=== PATIENT | male | born 1960 | race Hispanic/Latino ===

== ENCOUNTER 2025-02-15 07:24 | Observation (INO) | payer BC ==
[2025-02-11 13:43] LABS: BASOPHILS # (AUTO) 0.04 K/uL (0.00-0.20); BASOPHILS % (AUTO) 0.5 % (0.0-5.0); EOSINOPHILS # (AUTO) 0.12 K/uL (0.00-0.70); EOSINOPHILS % (AUTO) 1.4 % (0.0-8.0); HEMATOCRIT 38.9 % (42-54); IMMATURE GRANULOCYTE ABSOLUTE 0.04 K/uL (0-1); LYMPHOCYTES # (AUTO) 3.9 K/uL (1.0-4.8); LYMPHOCYTES % (AUTO) 44.8 % (21.0-51.0); MEAN CORPUSCULAR HEMOGLOBIN 30.7 pg (27.0-33.0); MEAN CORPUSCULAR HGB CONC 33.4 g/dL (32.0-36.0); MEAN CORPUSCULAR VOLUME 91.7 fL (79-99); MONOCYTES # (AUTO) 0.5 K/uL (0.1-1.0); MONOCYTES % (AUTO) 6.2 % (3.0-13.0); NEUTROPHILS # (AUTO) 4.1 K/uL (1.8-7.7); NEUTROPHILS % (AUTO) 46.6 % (40.0-77.0); PLATELET COUNT (AUTO) 252 K/uL (130-400); RED BLOOD CELL COUNT(AUTO) 4.24 MIL/uL (4.50-6.20); RED CELL DISTRIBUTION WIDTH 13.6 % (11.0-15.5); WHITE BLOOD COUNT (AUTO) 8.7 K/uL (4.8-10.8)
[2025-02-11 13:48] VITALS: BP 153/77; PULSE 69; RESP 18; TEMP 99.5
[2025-02-11 13:54] LABS: INR 1.02 (0.85-1.15); PROTHROMBIN TIME 10.8 SEC (9.6-11.6)
[2025-02-11 13:55] LABS: ALBUMIN 3.9 g/dL (3.5-5.0); CREATININE 0.8 mg/dL (0.5-1.3); PARTIAL THROMBOPLASTIN TIME 29.3 SEC (26.3-35.5); POTASSIUM 4.2 mmol/L (3.5-5.1)
--- NOTE | 2025-02-11 14:00 | NUR ---
RE: IS INITIAL IS INITIAL TEACHING DONE BY RT JERI DURING PREOP
[~2025-02-15] VITALS: Ht 185.4 cm; Wt 109.8 kg
[2025-02-15] VITALS (26 sets, daily range): BP systolic 125–168; BP diastolic 68–85; PULSE 63–98; RESP 14–20; TEMP 96.1–98.9; O2SAT 98
[~2025-02-15 07:24] MED LIST: AMLO-257 PO; ASPI-1443 PO; ATOR40TA69 PO; LOSA50TA64 PO
[2025-02-15] MEDS: VANCOMYCIN IV ONE (08:22)
[2025-02-15] MEDS ORDERED: ROPivacaine 0.5% 5MG/ML 30ML ONE (09:05)
[2025-02-15] MEDS ORDERED: ketaMINE 50MG/ML SYRINGE 50 MG/ML DISP.SYRIN ONE (09:06)
[2025-02-15] MEDS ORDERED: proPOFol 10 MG/ML 20ML VIAL IV ONE (09:08)
[2025-02-15] MEDS ORDERED: LIDOCAINE PF 100MG/5ML (2%) SYRINGE 5ML ONE (09:08)
[2025-02-15] MEDS ORDERED: FENTanyl CITRate PF 50 MCG/1 ML 2ML VIAL ONE (09:09)
[2025-02-15] MEDS ORDERED: rocuRONium bROMide 10MG/1ML 5ML VL ONE (09:09)
--- NOTE | 2025-02-15 09:23 | EKG ---
[facility] Test Date: 2025-02-15 Test Time: 08:17:51 Pat Name: JUNIOR PITTMAN Department: [facility] Room: 418 Gender: M Mainspring Winder: [id number] : 1960 Requested By: KOLBY ALLEN Order Number: [id number] Reading MD: Phu Cedeno Measurements Intervals [place] Rate: 76 P: 28 OK: 171 QRS: 11 QRSD: 91 T: 20 QT: 398 QTc: 449 Interpretive Statements Sinus rhythm Inferior infarct, old No previous ECG available for comparison Electronically Signed On 02-15-2025 22:16:57 CDT by Phu Cedeno Please click the below link to view image of tracing.
[2025-02-15] MEDS ORDERED: ondanSETRON 4MG INJ ONE (09:56)
[2025-02-15] MEDS ORDERED: dexaMETHasone SOD PHOSPHATE 10MG/ML 1ML VIAL ONE (09:56)
[2025-02-15] MEDS: TRANEXAMIC ACID 1000MG/10ML ONE (10:05)
[2025-02-15] MEDS: ketOROlac 30MG VIAL (30MG/ML) ONE (11:04)
[2025-02-15] MEDS: ROPivacaine 0.5% 5MG/ML 30ML ONE (11:04)
[2025-02-15] MEDS: TRANEXAMIC ACID 1000MG/10ML IV ONE ×2 (11:25)
[2025-02-15] MEDS ORDERED: GLYCOPYRROLATE 0.2 MG/ML 5 ML VIAL ONE (11:33)
[2025-02-15] MEDS ORDERED: NEOSTIGMINE METHYLSULFATE 1MG/ML IV ONE (11:33)
--- NOTE | 2025-02-15 11:48 | OP ---
Operative Note: DATE OF PROCEDURE: 02/15/25 PREOPERATIVE DIAGNOSIS: Left knee osteoarthritis. POSTOPERATIVE DIAGNOSIS: Left knee osteoarthritis. PROCEDURE PERFORMED: Left knee total knee arthroplasty. SURGEON: Felicia Brown MD DOCUMENT CONTROLLER: Angela Miller. ANESTHESIA: General with adductor canal block. ANESTHESIA: DIRECTOR HEMATOLOGY Farideh Aaron. ESTIMATED BLOOD LOSS: 50cc. COMPLICATIONS: None. DRAINS: None. SPECIMENS REMOVED: resected bone. Not sent to pathology. IMPLANTS: [employer] Journey II BCS size 8 Oxinium femur, size 7 tibial base plate, 35 mm patella, 10 mm polyethylene STATEMENT OF MEDICAL NECESSITY: The patient is a 64-year-old male who suffers from left knee osteoarthritis failing conservative management. After discussion of the risks, benefits, and alternatives with the patient, they voluntarily agreed to undergo the aforementioned procedure. DESCRIPTION OF PROCEDURE: Patient was properly identified in the preoperative holding area. Surgical site marking was verified and surgery consent reviewed. The patient was then taken to the operating room and placed in supine position on the OR table. After induction of general anesthesia, preoperative antibiotics were given, all bony prominences were well-padded, and a well padded tourniquet was applied but not inflated at this time. The left lower extremity was then prepped and draped in usual sterile fashion. Surgical time out was done verifying correct surgery, side, site, and location to be performed. We then began the procedure by exsanguinating the limb using an Esmarch and inflating the tourniquet to 350 mmHg. At this point, we made an anterior midline incision using a 10 blade, coming down sharply the level of the fascia. Skin flaps were elevated medially and laterally. We then obtained a clean 10 blade and performed a standard medial parapatellar arthrotomy. We excised the infrapatellar fat pad. We performed our soft tissue releases off of the tibia. We transected the ACL and removed the anterior portion of the medial & lateral meniscus. We then brought the knee into hyperflexion with the patella everted. We used our entry reamer to enter the femoral canal. We then placed our intramedullary cutting guide for our distal femoral cutting block. We then performed our distal femoral osteotomy ensuring appropriate rotation and removed the bony wafer. We then removed these pins and block and then used jig 2 to size the distal femur with the after mentioned size found. We then placed our 5-in-1 cutting block in 4 degrees of external rotation and took our 5 cuts ensuring to protect the patellar tendon and the collateral ligaments. We then removed the cutting block and our bony fragments using a curved osteotome. We then placed our PCL retractor subluxating the tibia anteriorly. Using an extra medullary tibial cutting guide, we hung the block for our proximal tibial cut taking 2 mm off the more diseased portion. Prior to pinning this block in place, we ensured appropriate varus/valgus alignment and posterior slope similar to the [place] slope of the patient's knee. We then performed our proximal tibial osteotomy and removed the bony wafer using Bovie electrocautery to release any remaining soft tissue attachments. We then used our tibial sizing paddle and checked once more for varus & valgus alignment and found this to be appropriate. At this point, we pinned our tibial paddle in place. We then removed the PCL retractor and subluxated the tibia posteriorly while we placed our femoral trial component. We then finished preparing the notch with the reamer and box chisel. The notch portion of the trial femoral component was the n placed. A posterior stabilized polyethylene, size 9 trial was placed. The knee was then taken through range of motion and found to have stable full range of motion. We then placed a bump under the ankle and everted the patella to perform our freehand cut of the undersurface the patella. We then sized our patella and reamed to the lug holes for this. We placed our trial patellar component and begin to take the knee through range of motion. The patella had only mild lateral tracking with a small lateral release performed. At this point we began removing our trial components and punched the tibial keel prior to removing our tibial trial component. Final components were opened and cement was mixed on the back table while we injected local cocktail in the posterior capsule. We then thoroughly irrigated out the bone and dried the bony surfaces. We cemented our tibial component in place ensuring to remove excess cement and placed our trial polyethylene. We then cemented our femoral component in place once again taking time to ensure excess cement was removed leg was brought into full extension to help squeeze the excess cement from around the femoral component. We then brought the knee back in a flexion to remove this portion of the cement at this point we placed the ankle in a bump thoroughly irrigated off the patellar component and cemented our patellar component in standard fashion again removing excess cement. While we waited for the cement to cure, we thoroughly irrigated out the wound with normal saline. Once our cement had cured, we took the knee through a range of motion and found full and stable range of motion. We then elected to use the size 10 polyethylene and removed our trial polyethylene. We impacted our final polyethylene component in place in standard fashion and took the knee through a range of motion check once more. This was satisfactory so we began to repair the arthrotomy using #1 Vicryl in interrupted [id number] fashion. Subcutaneous tissue was repaired using 2-0 Vicryl. Running subcuticular 3-0 Monocryl stitch with Dermabond placed over this for the skin. We then applied a foam barrier dressing and a pressure dressing consisting of 4 x 4's fluffs and an Danish wrap. The tourniquet was then deflated. Patient was awakened from anesthesia, and they were taken to the recovery room in stable condition. FELICIA BROWN MD Feb 15, 2025 11:48
--- NOTE | 2025-02-15 11:50 | DS ---
Discharge Summary Hospital Course Summary: The patient was admitted to the hospital postoperatively on 02/15/2025 after undergoing left total knee arthroplasty. They did well with routine postoperative pain control. They worked well with physical therapy. They developed some acute blood loss anemia but remained asymptomatic. The hospital course was otherwise uncomplicated. They were subsequently able to be discharged on postoperative day 1 once discharge arrangements were made with home health physical therapy. Central Office Maintainer(s): None Procedure(s): Left total knee arthroplasty, 02/15/2025 Assessment/Plan: ASSESSMENT: Status post left total knee arthroplasty Acute postoperative blood loss anemia asymptomatic PLAN: See discharge instructions Discharge Instructions: Begin working with home health physical therapy. Dressing may be removed 02/17/2025 and left open to air. Showers ok allowing soap and water to run over the wound. Pat dry. Do not submerge wound in tu b/pool. Do not apply ointments. Do not apply Betadine. Do not apply peroxide. Ice packs to decrease pain/swelling. Prescriptions have been sent to the pharmacy: *[place] 5/325mg 1-2 tab every 6 hours as needed for severe pain. (please call for refills) Cyclobenzaprine 5mg 1 tab every 8 hours as needed for muscle spasm pain. Gabapentin 100mg 1 tab every 8 hours (may discontinue if drowsy). Colace 100mg 1 tab orally twice a day as needed for constipation. Aspirin 325mg twice a day for 30 days to prevent blood clots. Call for a follow-up appointment in 2-3 weeks at [facility]. Home Medications: Active Scripts Docusate Sodium (Colace) 100 Mg Capsule, 1 CAP PO BID for 30 Days, #60 CAP 0 Refills Prov:MAGNO DE LEON MD 02/16/25 Hydrocodone/Acetaminophen (Hydrocodon-Acetaminophen 5-325) 5 Mg-325 Mg Tablet, 1-2 TAB PO Q6HPRN PRN for post op pain, #56 TAB 0 Refills Prov:MAGNO DE LEON MD 02/16/25 Gabapentin (Neurontin) 100 Mg Capsule, 100 MG PO TID, #90 CAP 0 Refills Prov:MAGNO DE LEON MD 02/16/25 Cyclobenzaprine HCl (Cyclobenzaprine HCl) 10 Mg Tablet, 5 MG PO Q8H PRN for MUSCLE SPASMS, #45 TAB 0 Refills Prov:MAGNO DE ELON MD 02/16/25 Aspirin (Aspirin EC) 325 Mg Tablet., 325 MG PO DAILY, #30 TAB 0 Refills Prov:MAGNO DE LEON MD 02/16/25 Reported Medications Atorvastatin Calcium (LIPITOR) 40 Mg Tablet, 40 MG PO DAILY, TAB 02/12/25 Amlodipine Besylate (Amlodipine Besylate) 5 Mg Tablet, 5 MG PO DAILY, TAB 02/12/25 Losartan Potassium (Losartan Potassium) 50 Mg Tablet, 50 MG PO BID, TAB 02/12/25 Discontinued Reported Medications Aspirin (Aspirin EC) 81 Mg Tablet., 81 MG PO DAILY, TAB 02/12/25 MAGNO DE LEON MD Feb 15, 2025 11:50
[2025-02-15] MEDS ORDERED: DiphenhydrAMINE HCL 50 MG/ML VIAL IVP PRN (12:00)
[2025-02-15] MEDS ORDERED: PoTASSium chloRIDE 20MEQ ER 20 MEQ ERTAB PO PRN (12:00)
[2025-02-15] MEDS ORDERED: PoTASSium chl 10% ELIXIR 20MEQ 20 MEQ/15 ML UDCUP PO PRN (12:00)
[2025-02-15] MEDS ORDERED: HYDROcodone/APAP 5/325 1 TAB TABLET PO PRN ×2 (12:00)
[2025-02-15] MEDS ORDERED: FERROUS FUMARATE 324 MG TABLET PO PRN (12:00)
[2025-02-15] MEDS ORDERED: PoTASSium chloRIDE 20MEQ/100ML 100 ML IV PRN (12:00)
[2025-02-15] MEDS ORDERED: ondanSETRON 4MG INJ IVP PRN (12:00)
[2025-02-15] MEDS ORDERED: CALCIUM CARB 500MG PO PRN (12:00)
[2025-02-15] MEDS: ketOROlac 15MG/ML VIAL (15MG/ML) IV SCH (13:01)
--- NOTE | 2025-02-15 13:10 | HMCIMG ---
KNEE/PATELLA 1-2VWS LT REASON: S/P LEFT TKA SURGERY TECHNIQUE: 2 views were obtained. FINDINGS: There is a left total knee joint prosthesis in place. There are no fractures in the remaining bone. There are surgical changes soft tissues. There are no foreign bodies. IMPRESSION: 1. Documentation of left total knee joint prosthesis placement.
--- NOTE | 2025-02-15 13:10 | NUR ---
arrived from pacu patient alert and oriented x4, moderate pain to left knee 5/10, vitals stable, room air, neurovasculars documented RT contacted for IS
--- NOTE | 2025-02-15 14:30 | NUR ---
Patient, spouse and family were educated on requesting pain meds at breakfast and lunch so when PT ambulates patient, pain is in better control. All voiced understanding. Addendum: 02/15/25 at 1616 by YOLETTE HOROWITZ PT Amended: Links added.
--- NOTE | 2025-02-15 15:25 | NUR ---
ORTHO COORDINATOR: TEACHING REGARDING DVT AND PNEUMONIA PREVENTION, PAIN EXPECTATIONS AND PAIN MANAGEMENT. PATIENT UP TO CHAIR, FAMILY AT BEDSIDE. B SCD SLEEVES IN ROOM, SCD MACHINE AT END OF BED. INCENTIVE SPIROMETER ON BEDSIDE TRAY. PATIENT RETURN DEMONSTRATED PROPER USE OF INCENTIVE SPIROMETER AND VERBALIZED FREQUENCY. PATIENT RETURN DEMONSTRATED PROPER FOOT FLEXION/EXTENSION EXERCISES. NUMERIC PAIN SCALE REVIEWED. CURRENT PAIN LEVEL 8/10. PRESSED CALL PALM. PATIENT INSTRUCTED TO PERFORM SELF PAIN ASSESSMENTS EVERY FOUR HOURS AFTER ADMINISTRATION OF REQUESTED PAIN MEDICATION. REMINDED PATIENT PAIN MEDICATIONS MUST BE REQUESTED. PATIENT INSTRUCTED TO ASSIGN A NUMERIC NUMBER AND TYPE OF PAIN SO THE PRIMARY NURSE CAN ADMINISTER APPROPRIATE MEDICATION. PATIENT AND FAMILY VERBALIZED UNDERSTANDING. PATIENT INTENDS TO RETURN HOME WITH HOME HEALTH PHYSICAL THERAPY. PATIENT AND FAMILY VERBALIZED UNDERSTANDING TO ALL INSTRUCTIONS. NO ADDITIONAL QUESTIONS AT THIS TIME. 2205 REPORT TO NURSE REGARDING CURRENT PAIN LEVEL. NURSE VERBALIZED UNDERSTANDING.
[2025-02-15] MEDS: GABApentin 100 MG CAPSULE PO SCH (15:46)
[2025-02-15] MEDS: GABAPENTIN 300 MG CAPSULE ONE (15:48)
[2025-02-15] MEDS: 0.9%NACL 1000ML 1,000 ML IV SCH (15:48)
[2025-02-15] MEDS: HYDROcodone/APAP 5/325 1 TAB TABLET PO PRN (15:48)
[2025-02-15] MEDS: FAMOTIDINE 20MG VIAL IV ONE (15:48)
[2025-02-15] MEDS: acetaMINOPHEN 100 ML ONE (15:48)
[2025-02-15] MEDS: ketOROlac 15MG/ML VIAL (15MG/ML) ONE (15:49)
[2025-02-15] MEDS ORDERED: VANCOMYCIN 1G/250ML KIT 250 ML IV SCH (18:00)
[2025-02-15] MEDS: traMADol HCL 50 MG TABLET PO PRN (18:43)
[2025-02-15] MEDS: ceFAZolin SODIUM 2 GM VIAL IVP SCH (18:43)
[2025-02-15] MEDS: LoSARTan 50 MG TABLET PO SCH (20:19)
[2025-02-15] MEDS: VANCOMYCIN 1G/250ML KIT 250 ML IV SCH (20:19)
[2025-02-15] MEDS: doCUSate SODIUM 100 MG CAP PO SCH (20:20)
[2025-02-16 04:03] VITALS: BP 130/65; PULSE 80; RESP 20; TEMP 98.2
[2025-02-16 04:52] LABS: HEMATOCRIT 35.1 % (42-54); MEAN CORPUSCULAR HGB CONC 33.9 g/dL (32.0-36.0); MEAN CORPUSCULAR VOLUME 91.4 fL (79-99); RED BLOOD CELL COUNT(AUTO) 3.84 MIL/uL (4.50-6.20); RED CELL DISTRIBUTION WIDTH 13.2 % (11.0-15.5); WHITE BLOOD COUNT (AUTO) 14.2 K/uL (4.8-10.8)
[2025-02-16 04:59] LABS: CREATININE 0.9 mg/dL (0.5-1.3); POTASSIUM 4.4 mmol/L (3.5-5.1)
[2025-02-16 08:00] VITALS: O2SAT 96
[2025-02-16] MEDS: ASPIRIN 325MG EC TAB PO SCH (08:10)
[2025-02-16] MEDS: amLODIPine 5 MG TAB PO SCH (08:10)
[2025-02-16] MEDS: polyETHYLene GLYCol 3350 17 GM POWD.PACK PO SCH (08:11)
--- NOTE | 2025-02-16 08:11 | PN ---
Ortho postop day one. This morning the patient is awake alert and oriented. He is in bed I have advised him to try to spend the majority of the day out of bed. Stated that he had been seated in the chair and got tired but understands and he will do so. Reports adequate pain control. Vital signs have been stable. Afebrile. Voiding on his own in the restroom. Laboratory results reviewed. Noted to drop in hemoglobin and hematocrit as expected after TKA. Patient is asymptomatic. We will address per protocol as necessary. Reinforced incentive spirometry. I removed the Danish bandage and the dressing is intact. SCD sleeves are on but not connected. Ice present to the extremity. Ambulated yesterday down the hallway and is currently ambulating in his room pending further physical therapy this morning. Anticipated discharge goal is home health/PT. Assessment: Status post left total knee arthroplasty. Asymptomatic acute postoperative blood loss anemia. Plan: Continue Dr. Brown's TKA protocol and discharge planning. Asymptomatic acute postoperative blood loss anemia addressed with the protocol as necessary. Vitals/Labs Vital Signs Date Time Temp Pulse Resp B/P (MAP) Pulse Ox O2 Delivery O2 Flow Rate FiO2 02/16/25 04:03 98.2 80 20 130/65 97 Room Air 02/15/25 20:00 0 21 Laboratory Tests 02/16/25 04:42 Medications Current Medications Vancomycin HCl 2 gm ONCE ONCE IV Last administered on 02/15/25at 08:22; Start 02/15/25 at 08:00; Stop 02/15/25 at 08:01; Status DC Gabapentin 300 mg STK-MED ONCE .ROUTE; Start 02/15/25 at 08:27; Stop 02/15/25 at 08:28; Status DC Acetaminophen 100 ml @ As Directed STK-MED ONCE .ROUTE; Start 02/15/25 at 08:28; Stop 02/15/25 at 08:28; Status DC Famotidine 20 mg STK-MED ONCE IV; Start 02/15/25 at 08:28; Stop 02/15/25 at 08:28; Status DC Ropivacaine 150 mg STK-MED ONCE .ROUTE; Start 02/15/25 at 09:05; Stop 02/15/25 at 09:06; Status DC Ketamine HCl 50 mg STK-MED ONCE .ROUTE; Start 02/15/25 at 09:06; Stop 02/15/25 at 09:06; Status DC Lidocaine HCl 100 mg STK-MED ONCE .ROUTE; Start 02/15/25 at 09:08; Stop 02/15/25 at 09:08; Status DC Propofol 200 mg STK-MED ONCE IV; Start 02/15/25 at 09:08; Stop 02/15/25 at 09:09; Status DC Rocuronium [place] 50 mg STK-MED ONCE .ROUTE; Start 02/15/25 at 09:09; Stop 02/15/25 at 09:09; Status DC Fentanyl Citrate 100 mcg STK-MED ONCE .ROUTE; Start 02/15/25 at 09:09; Stop 02/15/25 at 09:09; Status DC Ketorolac Tromethamine 30 mg STK-MED ONCE .ROUTE Last administered on 02/15/25at 11:04; Start 02/15/25 at 09:09; Stop 02/15/25 at 09:10; Status DC Ropivacaine 150 mg STK-MED ONCE .ROUTE Last administered on 02/15/25at 11:04; Start 02/15/25 at 09:09; Stop 02/15/25 at 09:10; Status DC Tranexamic Acid 1,000 mg STK-MED ONCE .ROUTE Last administered on 02/15/25at 10:05; Start 02/15/25 at 09:10; Stop 02/15/25 at 09:10; Status DC Tranexamic Acid 1,000 mg STK-MED ONCE IV; Start 02/15/25 at 00:00; Stop 02/15/25 at 00:01; Status Cancel Ondansetron HCl 4 mg STK-MED ONCE .ROUTE; Start 02/15/25 at 09:56; Stop 02/15/25 at 09:56; Status DC Dexamethasone Sodium Phosphate 10 mg STK-MED ONCE .ROUTE; Start 02/15/25 at 09:56; Stop 02/15/25 at 09:56; Status DC Glycopyrrolate 1 mg STK-MED ONCE .ROUTE; Start 02/15/25 at 11:33; Stop 02/15/25 at 11:34; Status DC Neostigmine Methylsulfate 10 mg STK-MED ONCE IV; Start 02/15/25 at 11:33; Stop 02/15/25 at 11:34; Status DC Tranexamic Acid 1,000 mg STK-MED ONCE IV Last administered on 02/15/25at 11:25; Start 02/15/25 at 11:25; Stop 02/15/25 at 11:38; Status DC Sodium Chloride 1,000 ml @ 100 mls/hr Q10H IV Last administered on 02/16/25at 00:20; Start 02/15/25 at 12:00; Stop 02/16/25 at 11:59 Polyethylene Glycol 17 gm DAILY PO; Start 02/16/25 at 09:00; Stop 03/18/25 at 08:59 Bisacodyl 10 mg DAILY PRN RC; Start 02/18/25 at 12:00; Stop 03/20/25 at 11:59 Vancomycin HCl 250 ml @ 125 mls/hr Q12H IV; Start 02/15/25 at 18:00; Stop 02/15/25 at 17:54; Status DC Ketorolac Tromethamine 15 mg Q6H PRN IV; Start 02/16/25 at 12:00; Stop 02/21/25 at 11:59 Ferrous Fumarate 324 mg DAILY PRN PO; Start 02/15/25 at 12:00; Stop 03/17/25 at 11:59 Ondansetron HCl 4 mg Q6H PRN IVP; Start 02/15/25 at 12:00; Stop 03/17/25 at 11:59 Calcium Carbonate 500 mg Q12H PRN PO; Start 02/15/25 at 12:00; Stop 03/17/25 at 11:59 Diphenhydramine HCl 25 mg Q6H PRN IVP; Start 02/15/25 at 12:00; Stop 03/17/25 at 11:59 Cefazolin Sodium 2 gm Q8H IVP Last administered on 02/16/25at 00:20; Start 02/15/25 at 17:00; Stop 02/16/25 at 01:01; Status DC Cyclobenzaprine HCl 5 mg Q8H PRN PO; Start 02/15/25 at 12:00; Stop 03/17/25 at 11:59 Gabapentin 100 mg TID PO Last administered on 02/15/25at 20:21; Start 02/15/25 at 14:00; Stop 03/17/25 at 13:59 Aspirin 325 mg DAILY PO; Start 02/16/25 at 09:00; Stop 03/18/25 at 08:59 Ketorolac Tromethamine 15 mg Q8H IV Last administered on 02/16/25at 04:59; Start 02/15/25 at 12:00; Stop 02/16/25 at 04:02; Status DC Docusate Sodium 100 mg BID PO Last administered on 02/15/25at 20:20; Start 02/15/25 at 21:00; Stop 03/17/25 at 20:59 Potassium Chloride 100 ml @ 100 mls/hr AD PRN IV; Start 02/15/25 at 12:00; Stop 03/17/25 at 11:59 Potassium Chloride 20 meq AD PRN PO; Start 02/15/25 at 12:00; Stop 03/17/25 at 11:59 Potassium Chloride 20 meq AD PRN PO; Start 02/15/25 at 12:00; Stop 03/17/25 at 11:59 Tramadol HCl 50 mg Q6H PRN PO Last administered on 02/15/25at 18:43; Start 02/15/25 at 12:00; Stop 02/20/25 at 11:59 Acetaminophen/ Hydrocodone Bitart Q4H PRN PO; Start 02/15/25 at 12:00; Stop 02/15/25 at 11:55; Status DC Amlodipine Besylate 5 mg DAILY PO; Start 02/16/25 at 09:00; Stop 03/18/25 at 08:59 Atorvastatin Calcium 40 mg HS PO; Start 02/16/25 at 21:00; Stop 03/18/25 at 20:59 Losartan Potassium 50 mg BID PO Last administered on 02/15/25at 20:19; Start 02/15/25 at 21:00; Stop 03/17/25 at 20:59 Acetaminophen/ Hydrocodone Bitart 1 tab Q4H PRN PO; Start 02/15/25 at 12:00; Stop 02/20/25 at 11:59 Acetaminophen/ Hydrocodone Bitart 2 tab Q4H PRN PO Last administered on 02/15/25at 15:48; Start 02/15/25 at 12:00; Stop 02/20/25 at 11:59 Ketorolac Tromethamine 15 mg STK-MED ONCE .ROUTE; Start 02/15/25 at 12:32; Stop 02/15/25 at 12:33; Status DC Vancomycin HCl 250 ml @ 125 mls/hr Q12H IV Last administered on 02/15/25at 20:19; Start 02/15/25 at 21:00; Stop 02/16/25 at 10:59 JAGRUTI CROFT NP Feb 16, 2025 08:11
[2025-02-16 08:28] VITALS: BP 125/68; PULSE 79; RESP 16; TEMP 98.7
[2025-02-16 11:39] VITALS: BP 115/62; PULSE 72; RESP 18; TEMP 98.6
[2025-02-16] MEDS: ketOROlac 15MG/ML VIAL (15MG/ML) IV PRN (15:09)
[2025-02-16] MEDS: CYCLOBENZAPRINE HCL 10 MG TABLET PO PRN (15:13)
--- NOTE | 2025-02-16 15:44 | NUR ---
CM NOTE/[facility] CM spoke to Brook with [facility]. [facility] patient is approved for services. CM updated primary nurse and Dr. Brown with acceptance. CM spoke to Nola with [facility]. [facility] patient has not met deductible and will need to pay $75 for walker. CM updated patient and spouse. Patient reports he can borrow walker from his brother. CM offered to lend walker from [facility] and instructed patient to return item once he obtains his own walker. Verbalized understanding and agreed. No other needs verbalized. Addendum: 02/16/25 at 1547 by PRATEEK EDEN CM Amended: Links added.
--- NOTE | 2025-02-16 16:00 | NUR ---
ORTHO COORDINATOR: REINFORCED TEACHING. PATIENT IN BED, REPORTS JUST COMPLETING PHYSICAL THERAPY. PATIENT REPORTS PAIN MANAGED. REPORTS SORENESS FROM PHYSICAL THERAPY. ICE PACK TO KNEE DRESSING. ENCOURAGED PATIENT TO CONTINUE WITH PAIN ASSESSMENTS EVERY FOUR HOURS, PREMEDICATING PRIOR TO PHYSICAL THERAPY, INCENTIVE SPIROMETER AND FOOT FLEXION/EXTENSION EXERCISES. DRESSING REMOVED FROM LEFT KNEE. INCISION CLEAN, DRY AND INTACT. PATIENT ENCOURAGED TO SHOWER TODAY, SHOWERING PRECAUTIONS PROVIDED. NEXT STEPS WITH HOME HEALTH REVIEWED. PATIENT AND VERBALIZED UNDERSTANDING. 1615 REPORT TO PRIMARY NURSE REGARDING NEED TO SHOWER. PRIMARY NURSE ACKNOWLEDGED COMMUNICATION.
[2025-02-16 16:57] VITALS: BP 136/71; PULSE 62; RESP 16; TEMP 98.1
[2025-02-16] MEDS ORDERED: CYCL-309 PO (17:41)
[2025-02-16] MEDS ORDERED: ASPI-891 PO (17:41)
[2025-02-16] MEDS ORDERED: GABA100C PO (17:41)
[2025-02-16] MEDS ORDERED: DOCU-116 PO (17:41)
[2025-02-16] MEDS ORDERED: HYDR-4060 PO (17:41)
--- NOTE | 2025-02-16 18:00 | NUR ---
note pt dc at this time, iv removed, [facility] contacted with report , educated pt of discharge information and safety
[2025-02-16] MEDS ORDERED: atorVAStatin 40 MG TABLET PO SCH (21:00)
[2025-02-18] MEDS ORDERED: BisaCODYL 10 MG SUPP.RECT RC PRN (12:00)
--- NOTE | 2025-02-23 16:13 | NUR ---
02/23 @ [id number] FAMILY MEMBER RETURNED WALKER#[id number], LOANED TO MR. PITTMAN. RETURNED TO PHYSICAL THERAPY DEPT, SIGNED OFF HOSPITAL PROPERTY FORM AND UPLOADED TO [employer].
== END 2025-02-16 19:00 | disposition home or self-care (01) ==
LOC: DAH 07:24 → DAHIP 07:25 → 4CH 13:10
PROVIDERS: ADMIT Student in an Organized Health Care Education/Training Program; ATTEND Student in an Organized Health Care Education/Training Program
DX: M17.12 Unilateral primary osteoarthritis, left knee (principal); M23.8X2 Other internal derangements of left knee; D62 Acute posthemorrhagic anemia; E78.5 Hyperlipidemia, unspecified; I10 Essential (primary) hypertension; F17.210 Nicotine dependence, cigarettes, uncomplicated; E66.9 Obesity, unspecified; Z68.31 Body mass index [BMI] 31.0-31.9, adult; Z79.899 Other long term (current) drug therapy
CPT/HCPCS: 82040; 80048 ×2; 85025; 85610; 85730; 84134; 86140; 36415 ×2; 87641; 27447; 96365; 96366 ×2; 96375; 96368; 73560; 97161; 97116 ×4; 97530 ×3; 93005; 96376; 85027; G0378 ×30; A4663; J3490 ×6; J3010; J1100; J2003; J2704; J2405; J1885 ×5; J2710; J3370 ×3; J2795 ×2; J0690 ×2; C1713 ×2; C1776 ×2; A4649 ×2; A6255; A5120; A4215; A4223 ×2; A4213; A4222; A4221; A4216